=== PATIENT | male | born 1990 | race African-American/Black ===

== ENCOUNTER 2025-01-13 18:14 | Emergency (ER) | payer SELFPAY ==
[~2025-01-13] VITALS: Ht 182.9 cm; Wt 82.0 kg
[2025-01-13 18:25] VITALS: O2SAT 100
[2025-01-13 19:52] LABS: BASOPHILS % 0.3 % (0.0-2.0); EOSINOPHILS % 0.2 % (0.0-5.0); HEMATOCRIT. 41.4 % (42.0-52.0); HEMOGLOBIN. 13.3 g/dL (14.0-18.0); LYMPHOCYTES % 12.0 % (20.0-50.0); MEAN PLATELET VOLUME 7.8 fl (7.4-10.4); MONOCYTES % 7.1 % (2.0-8.0); NEUTROPHILS % 80.4 % (40.0-76.0); PLATELET 276 x1000/uL (130-400); RED BLOOD CELL COUNT 5.07 mill/uL (4.7-6.1); RED CELL DISTRIBUTION WIDTH 15.7 % (11.6-14.6)
[2025-01-13 20:02] LABS: INR 1.0
[2025-01-13 20:07] LABS: CREATININE 0.9 mg/dL (0.6-1.3)
[2025-01-13 20:08] LABS: UREA NITROGEN BLOOD 7 mg/dL (9-23)
[2025-01-13 20:09] LABS: ASPARTATE AMINOTRANSFERASE 32 IU/L (<34)
[2025-01-13] MEDS: SODIUM CHLORIDE 0.9% 1,000 ML IV ONE (20:09)
[2025-01-13 20:10] LABS: BILIRUBIN DIRECT 0.2 mg/dL (<=3.0); BILIRUBIN TOTAL 0.8 mg/dL (0.1-1.0); PROTEIN TOTAL 7.1 g/dL (6.0-8.3)
[2025-01-13 20:32] LABS: CLARITY URINE CLEAR (CLEAR); COLOR URINE YELLOW (YELLOW); GLUCOSE URINE NEGATIVE (NEGATIVE); KETONES URINE TRACE (NEGATIVE); LEUKOCYTE ESTERASE URINE NEGATIVE (NEGATIVE); NITRITE URINE NEGATIVE (NEGATIVE); OCCULT BLOOD URINE NEGATIVE (NEGATIVE); PH URINE 7.5 (4.5-8.0); PROTEIN URINE NEGATIVE (NEGATIVE); SPECIFIC GRAVITY URINE 1.010 (1.005-1.030); UROBILINOGEN URINE 0.2 E.U./dL (0.2-1.0)
[2025-01-13 20:41] LABS: *AMPHETAMINES SCREEN URINE PRESUMPTIVE POSITIVE (NEGATIVE); *BARBITURATES SCREEN URINE NEGATIVE (NEGATIVE); *BENZODIAZEPINES SCREEN URINE NEGATIVE (NEGATIVE)
[2025-01-13 20:42] LABS: *COCAINE SCREEN URINE NEGATIVE (NEGATIVE); CANNABINOID URINE SCREEN NEGATIVE (NEGATIVE); ECSTASY MDMA SCREEN URINE NEGATIVE (NEGATIVE); METHADONE URINE SCREEN NEGATIVE (NEGATIVE); OPIATES URINE SCREEN PRESUMPTIVE POSITIVE (NEGATIVE); PHENCYCLIDINE URINE SCREEN NEGATIVE (NEGATIVE)
[2025-01-13] MEDS ORDERED: IOHEXOL-300 100 ML BOTTLE ONE (21:55)
[2025-01-14 00:59] VITALS: BP 124/85; PULSE 60; RESP 13; TEMP 36.8; O2SAT 100
== END 2025-01-14 01:01 | disposition home or self-care (01) ==
LOC: ER 18:14 → CMPBEDREQ 01-14 08:25
DX: R10.30 Lower abdominal pain, unspecified (principal); R11.0 Nausea; Z79.899 Other long term (current) drug therapy
CPT/HCPCS: 99285; 74177; 96360; 80076; 80305; 80048; 83690; 83735; 85025; 85610; 85730; 36415; 81003; Q9967; J7030